=== PATIENT | female | born 1985 | race Caucasian/White ===

== ENCOUNTER 2016-11-02 11:11 | Emergency (ER) | payer MEDICAID ==
[~2016-11-02] VITALS: Ht 167.6 cm; Wt 81.6 kg
[2016-11-02] MEDS ORDERED: HYDROCODONE/APAP 5/325MG 1 EACH TABLET ONE (12:16)
[2016-11-02] MEDS ORDERED: HYDROCODONE/APAP 5/325MG 1 EACH TABLET PO ONE (12:30)
[2016-11-02 13:13] VITALS: BP 124/82
== END 2016-11-02 13:13 | disposition home or self-care (01) ==
LOC: ER 11:16
DX: T21.22XA Burn of second degree of abdominal wall, initial encounter (principal); X58.XXXA Exposure to other specified factors, initial encounter; Y93.89 Activity, other specified; Y92.89 Other specified places as the place of occurrence of the external cause; Y99.9 Unspecified external cause status
CPT/HCPCS: A4606; A6209; A6403; Z7610

== ENCOUNTER 2016-12-01 10:42 | Emergency (ER) | payer MEDICAID ==
[~2016-12-01] VITALS: Ht 167.6 cm; Wt 81.6 kg
[2016-12-01 10:47] VITALS: BP 129/70
== END 2016-12-01 11:15 | disposition home or self-care (01) ==
LOC: ER 10:46
DX: L25.9 Unspecified contact dermatitis, unspecified cause (principal)
CPT/HCPCS: A4606; A6402; A6407; Z7610

== ENCOUNTER 2016-12-03 12:23 | Emergency (ER) | payer MEDICAID ==
[~2016-12-03] VITALS: Ht 170.2 cm; Wt 83.9 kg
[2016-12-03 12:31] VITALS: BP 117/63
[2016-12-03] MEDS ORDERED: TDAP [DIPH/PERTUSSIS/TET] 0.5 ML VIAL IM ONE (12:52)
[2016-12-03] MEDS ORDERED: IBUPROFEN 600 MG TABLET PO ONE (12:52)
--- NOTE | 2016-12-03 13:00 | NUR ---
MOTRIN 600MG PO GIVEN ORDERED TTDA BOOSTER ([id number]; EXP 02/06/18) GIVEN in RUE G 23 IM ORDERED
[2016-12-03] MEDS: IBUPROFEN 600 MG TABLET PO ONE (13:02)
[2016-12-03] MEDS: TDAP [DIPH/PERTUSSIS/TET] 0.5 ML VIAL IM ONE (13:02)
== END 2016-12-03 13:38 | disposition home or self-care (01) ==
LOC: ER 12:30
DX: S61.012A Laceration without foreign body of left thumb without damage to nail, initial encounter (principal); W45.8XXA Other foreign body or object entering through skin, initial encounter; Y93.89 Activity, other specified; Y92.89 Other specified places as the place of occurrence of the external cause; Y99.8 Other external cause status
CPT/HCPCS: 12001; 90471; 90715; 99283; A4606; A6402; Z7610

== ENCOUNTER 2016-12-08 10:42 | Emergency (ER) | payer MEDICAID ==
[~2016-12-08] VITALS: Ht 167.6 cm; Wt 81.6 kg
[2016-12-08 10:56] VITALS: BP 119/69
== END 2016-12-08 11:26 | disposition home or self-care (01) ==
LOC: ER 10:44
DX: L08.89 Other specified local infections of the skin and subcutaneous tissue (principal); M79.641 Pain in right hand
CPT/HCPCS: A4606; Z7610

== ENCOUNTER 2017-02-06 00:34 | Emergency (ER) | payer MEDICAID ==
[~2017-02-06] VITALS: Ht 167.6 cm; Wt 90.7 kg
--- NOTE | 2017-02-06 00:50 | NUR ---
TO BED 7 A 31 YO FEMALE BIBSELF WITH C/O PELVIC PAIN "ICY-HOT" LIKE BURNING PAIN, ON AND OFF FOR A WEEK, PATIENT ALSO REPORTS FREQUENT URINATION/ BLOATING FEELING. PATIENT IS AAOX4, AMBULATORY WITH STEADY GAIT. AFEBRILE. VSS. INITIATED COMFORT MEASURES. GOWNED. AWAITING FOR ER MD LAGUNA.
--- NOTE | 2017-02-06 01:00 | NUR ---
STARTED A SALINE LOCK ON THE LEFT HAND G20, BLOOD DRAWN AND SENT TO LAB.
--- NOTE | 2017-02-06 01:05 | NUR ---
DR TORRES AT BEDSIDE FOR EVAL.
[2017-02-06] MEDS: KETOROLAC TROMETHAMINE INJ 30 MG/ML VIAL IV ONE ×2 (01:11→03:30)
[2017-02-06 01:21] LABS: APPEARANCE,URINE SL CLOUDY (CLEAR); BASOPHILS # (AUTO) 0.1 /CMM (0.0-0.2); BASOPHILS % (AUTO) 0.6 % (0.0-2.0); BILIRUBIN,URINE NEGATIVE (NEGATIVE); BLOOD, URINE NEGATIVE Ery/uL (NEGATIVE); COLOR,URINE YELLOW (YELLOW); EOSINOPHILS # (AUTO) 0.2 /CMM (0.0-0.7); EOSINOPHILS % (AUTO) 2.1 % (0.0-6.0); HEMATOCRIT 42 % (33-45); HEMOGLOBIN 14.3 g/dL (11.5-14.8); KETONES,URINE NEGATIVE (NEGATIVE); LEUKOCYTE ESTERASE ,URINE NEGATIVE (NEGATIVE); LYMPHOCYTES # (AUTO) 3.6 /CMM (0.8-4.8); LYMPHOCYTES % (AUTO) 33.6 % (20.0-44.0); MEAN CORPUSCULAR HEMOGLOBIN 29 PG (26.0-33.0); MEAN CORPUSCULAR HGB CONC 34 g/dl (31.0-36.0); MEAN CORPUSCULAR VOLUME 85 fL (82-100); MONOCYTES # (AUTO) 0.5 /CMM (0.1-1.30); NEUTROPHILS # (AUTO) 6.2 /CMM (1.8-8.9); NEUTROPHILS % (AUTO) 58.7 % (43.0-81.0); NITRITE, URINE NEGATIVE (NEGATIVE); PLATELET COUNT (AUTO) 295 /CMM (150-450); PROTEIN,URINE NEGATIVE (NEGATIVE); RDW COEFFICIENT OF VARIATION 13.2 (11.5-15.0); RED BLOOD CELL COUNT(AUTO) 4.96 MIL/uL (4.0-5.2); UGLUCOSE NEGATIVE (NEGATIVE); UROBILINOGEN,URINE 0.2 EU/dL (0.2); WHITE BLOOD COUNT (AUTO) 10.6 K/uL (4.3-11.0)
[2017-02-06 01:26] LABS: PREGNANCY TEST URINE QUAL NEGATIVE (NEGATIVE)
[2017-02-06 02:02] LABS: CALCIUM, SERUM 8.7 mg/dL (8.5-10.1); CREATININE 0.7 mg/dL (0.6-1.3); POTASSIUM 3.6 mmol/L (3.5-5.1)
[2017-02-06 02:08] LABS: ALBUMIN 3.7 g/dL (3.4-5.0); BILIRUBIN,DIRECT 0.1 mg/dL (0.0-0.2); BILIRUBIN,TOTAL 0.3 mg/dL (0.2-1.0); TOTAL PROTEIN, SERUM 7.3 g/dL (6.4-8.2)
--- NOTE | 2017-02-06 02:44 | NUR ---
pelvic/transvaginal ultrasound ongoing at bedside.
[2017-02-06] MEDS ORDERED: KETOROLAC TROMETHAMINE INJ 30 MG/ML VIAL ONE (03:24)
--- NOTE | 2017-02-06 03:30 | NUR ---
toradol 30mg ivp given per Dr Rincon's verbal order. test negative.
--- NOTE | 2017-02-06 03:37 | NUR ---
IV removed. Catheter intact and site benign. Pressure and 4x4 applied to site. No bleeding noted. Patient discharged to home in stable condition. Written and verbal after care instructions given. Patient verbalizes understanding of instruction. Patient is ambulatory with steady gait, accompanied by . No further complaints.
[2017-02-06 03:39] VITALS: BP 120/78
== END 2017-02-06 03:39 | disposition home or self-care (01) ==
LOC: ER 00:34
DX: N83.00 Follicular cyst of ovary, unspecified side (principal)
CPT/HCPCS: 36415; 76856; 80048; 80076; 81001; 84703 ×2; 85025; 96374; 99285; A4606; J1885; Z7610; 81000-TC

== ENCOUNTER 2017-07-25 09:08 | Emergency (ER) | payer SELFPAY ==
[~2017-07-25] VITALS: Ht 170.2 cm; Wt 86.2 kg
--- NOTE | 2017-07-25 09:15 | NUR ---
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 ALSO C/O DIARRHEA. A/OX 4. BREATHING EVEN AND UNLABORED. NO SOB. VITALS STABLE. SAFETY AND COMFORT MEASURES IN PLACE. AWAITING MD ORDERS.
--- NOTE | 2017-07-25 09:20 | NUR ---
URINE OBTAINED AND SENT TO LAB.
[2017-07-25] MEDS ORDERED: IBUPROFEN 600 MG TABLET PO ONE ×2 (09:26→09:30)
--- NOTE | 2017-07-25 09:28 | NUR ---
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 MD INFORMED AND STATED TO CANCEL ORDER FOR MOTRIN 600MG.
[2017-07-25 09:42] LABS: BASOPHILS % (AUTO) 0.4 % (0.0-2.0); EOSINOPHILS # (AUTO) 0.2 /CMM (0.0-0.7); EOSINOPHILS % (AUTO) 2.8 % (0.0-6.0); HEMATOCRIT 41 % (33-45); HEMOGLOBIN 13.8 g/dL (11.5-14.8); LYMPHOCYTES # (AUTO) 2.2 /CMM (0.8-4.8); MEAN CORPUSCULAR HEMOGLOBIN 30 PG (26.0-33.0); MEAN CORPUSCULAR HGB CONC 34 g/dl (31.0-36.0); MEAN CORPUSCULAR VOLUME 87 fL (82-100); MONOCYTES # (AUTO) 0.4 /CMM (0.1-1.30); MONOCYTES % (AUTO) 4.9 % (2.0-12.0); NEUTROPHILS % (AUTO) 63.9 % (43.0-81.0); PLATELET COUNT (AUTO) 314 /CMM (150-450); RDW COEFFICIENT OF VARIATION 12.8 (11.5-15.0); RED BLOOD CELL COUNT(AUTO) 4.67 MIL/uL (4.0-5.2); WHITE BLOOD COUNT (AUTO) 7.8 K/uL (4.3-11.0)
[2017-07-25 09:43] LABS: APPEARANCE,URINE CLEAR (CLEAR); BILIRUBIN,URINE NEGATIVE (NEGATIVE); BLOOD, URINE 1+ Ery/uL (NEGATIVE); COLOR,URINE YELLOW (YELLOW); KETONES,URINE NEGATIVE (NEGATIVE); LEUKOCYTE ESTERASE ,URINE 1+ (NEGATIVE); NITRITE, URINE NEGATIVE (NEGATIVE); PH,URINE 5.5 (5.0-8.0); PROTEIN,URINE NEGATIVE (NEGATIVE); UGLUCOSE NEGATIVE (NEGATIVE); UROBILINOGEN,URINE 0.2 EU/dL (0.2)
[2017-07-25 09:50] LABS: BACTERIA,URINE Few /HPF (None Seen); RBC,URINE 0-2 /HPF (0-2); SQUAMOUS EPITHELIAL CELL,UR Few /HPF (None Seen)
[2017-07-25 09:54] LABS: CALCIUM, SERUM 8.4 mg/dL (8.5-10.1); CREATININE 0.7 mg/dL (0.6-1.3); POTASSIUM 3.4 mmol/L (3.5-5.1)
[2017-07-25 11:01] VITALS: BP 128/72
--- NOTE | 2017-07-25 11:09 | NUR ---
Patient discharged to home in stable condition. Written and verbal after care instructions given. Patient verbalizes understanding of instruction.
== END 2017-07-25 11:08 | disposition home or self-care (01) ==
LOC: ER 09:11
DX: O23.40 Unspecified infection of urinary tract in pregnancy, unspecified trimester (principal); Z3A.00 Weeks of gestation of pregnancy not specified
CPT/HCPCS: 36415; 76856-TC; 80048-TC; 81000-TC; 84702-TC; 84703-TC; 85025-TC; 87086-TC; A4606; Z7610

== ENCOUNTER 2017-08-04 09:18 | Emergency (ER) | payer MEDICAID ==
[~2017-08-04] VITALS: Ht 157.5 cm; Wt 65.8 kg
--- NOTE | 2017-08-04 09:30 | NUR ---
PT CAME IN FOR R PELVIC PAIN, WATERY DISCHARGED PER PT REPORT, A0. SEEN BY MD FOR EVAL. VSS. SAFETY AND COMFORT MEASURES PROVIDED. WILL MONITOR.
--- NOTE | 2017-08-04 10:10 | NUR ---
NATHALY LUCIO AT BS.
[2017-08-04 10:15] LABS: BASOPHILS # (AUTO) 0.1 /CMM (0.0-0.2); BASOPHILS % (AUTO) 0.8 % (0.0-2.0); EOSINOPHILS # (AUTO) 0.1 /CMM (0.0-0.7); EOSINOPHILS % (AUTO) 1.5 % (0.0-6.0); HEMATOCRIT 40 % (33-45); HEMOGLOBIN 13.6 g/dL (11.5-14.8); LYMPHOCYTES # (AUTO) 2.2 /CMM (0.8-4.8); MEAN CORPUSCULAR HEMOGLOBIN 29 PG (26.0-33.0); MEAN CORPUSCULAR HGB CONC 34 g/dl (31.0-36.0); MEAN CORPUSCULAR VOLUME 86 fL (82-100); MONOCYTES # (AUTO) 0.5 /CMM (0.1-1.30); MONOCYTES % (AUTO) 5.8 % (2.0-12.0); NEUTROPHILS # (AUTO) 5.3 /CMM (1.8-8.9); NEUTROPHILS % (AUTO) 64.9 % (43.0-81.0); PLATELET COUNT (AUTO) 327 /CMM (150-450); RDW COEFFICIENT OF VARIATION 11.9 (11.5-15.0); RED BLOOD CELL COUNT(AUTO) 4.69 MIL/uL (4.0-5.2); WHITE BLOOD COUNT (AUTO) 8.2 K/uL (4.3-11.0)
[2017-08-04 11:52] LABS: APPEARANCE,URINE Clear (CLEAR); BILIRUBIN,URINE Negative (NEGATIVE); BLOOD, URINE Trace-intact Ery/uL (NEGATIVE); COLOR,URINE Yellow (YELLOW); KETONES,URINE Negative (NEGATIVE); LEUKOCYTE ESTERASE ,URINE Small (NEGATIVE); NITRITE, URINE Negative (NEGATIVE); PROTEIN,URINE Negative (NEGATIVE); UGLUCOSE Negative (NEGATIVE); UROBILINOGEN,URINE 0.2 EU/dL (0.2)
[2017-08-04 12:09] LABS: BACTERIA,URINE Few /HPF (None Seen); SQUAMOUS EPITHELIAL CELL,UR Few /HPF (None Seen)
--- NOTE | 2017-08-04 12:10 | NUR ---
PT CAME IN FOR R PELVIC PAIN, WATERY DISCHARGED PER PT REPORT, A0. SEEN BY MD FOR EVAL. VSS. SAFETY AND COMFORT MEASURES PROVIDED. WILL MONITOR.
--- NOTE | 2017-08-04 12:32 | NUR ---
Patient discharged to home in stable condition. Written and verbal after care instructions given. Patient verbalizes understanding of instruction.
[2017-08-04 12:34] VITALS: BP 110/78
== END 2017-08-04 12:34 | disposition home or self-care (01) ==
LOC: ER 09:25
DX: O23.41 Unspecified infection of urinary tract in pregnancy, first trimester (principal); Z3A.01 Less than 8 weeks gestation of pregnancy
CPT/HCPCS: 36415; 76805; 81001; 84702; 85025; 86850; 87086; 99285; A4606; Z7610; 81000-TC

== ENCOUNTER 2017-09-20 07:41 | Emergency (ER) | payer MEDICAID ==
[~2017-09-20] VITALS: Ht 167.6 cm; Wt 87.1 kg
--- NOTE | 2017-09-20 07:50 | NUR ---
AAOX3, C/O ON/OFF ABD CRAMPING X 2 DAYS, WORSE TODAY, BACK PAIN. NAUSEA 3 MONTHS , A0. RR IS EVEN AND UNLABORED WITH NAD NOTED. SKIN IS WARM AND DRY. DR NAM AT BS FOR EVAL.
[2017-09-20 09:06] LABS: BASOPHILS % (AUTO) 0.3 % (0.0-2.0); EOSINOPHILS # (AUTO) 0.1 /CMM (0.0-0.7); EOSINOPHILS % (AUTO) 1.3 % (0.0-6.0); HEMATOCRIT 36 % (33-45); HEMOGLOBIN 12.8 g/dL (11.5-14.8); LYMPHOCYTES # (AUTO) 2.4 /CMM (0.8-4.8); MEAN CORPUSCULAR HEMOGLOBIN 30 PG (26.0-33.0); MEAN CORPUSCULAR HGB CONC 35 g/dl (31.0-36.0); MEAN CORPUSCULAR VOLUME 86 fL (82-100); MONOCYTES # (AUTO) 0.6 /CMM (0.1-1.30); MONOCYTES % (AUTO) 5.2 % (2.0-12.0); NEUTROPHILS # (AUTO) 7.7 /CMM (1.8-8.9); NEUTROPHILS % (AUTO) 71.2 % (43.0-81.0); PLATELET COUNT (AUTO) 313 /CMM (150-450); RDW COEFFICIENT OF VARIATION 12.9 (11.5-15.0); RED BLOOD CELL COUNT(AUTO) 4.21 MIL/uL (4.0-5.2); WHITE BLOOD COUNT (AUTO) 10.9 K/uL (4.3-11.0)
[2017-09-20 09:13] LABS: BILIRUBIN,URINE NEGATIVE (NEGATIVE); BLOOD, URINE NEGATIVE Ery/uL (NEGATIVE); COLOR,URINE YELLOW (YELLOW); KETONES,URINE NEGATIVE (NEGATIVE); LEUKOCYTE ESTERASE ,URINE 2+ (NEGATIVE); NITRITE, URINE NEGATIVE (NEGATIVE); PROTEIN,URINE NEGATIVE (NEGATIVE); UGLUCOSE NEGATIVE (NEGATIVE); UROBILINOGEN,URINE 0.2 EU/dL (0.2)
[2017-09-20 09:15] LABS: APPEARANCE,URINE SLIGHTLY CLOUDY (CLEAR)
[2017-09-20 09:22] LABS: ALBUMIN 3.2 g/dL (3.4-5.0); BILIRUBIN,DIRECT 0.1 mg/dL (0.0-0.2); BILIRUBIN,TOTAL 0.5 mg/dL (0.2-1.0); CALCIUM, SERUM 9.2 mg/dL (8.5-10.1); CREATININE 0.5 mg/dL (0.6-1.3); POTASSIUM 3.4 mmol/L (3.5-5.1); TOTAL PROTEIN, SERUM 7.2 g/dL (6.4-8.2)
[2017-09-20 09:36] LABS: BACTERIA,URINE 1+ /HPF (None Seen); MUCUS,URINE Few /LPF (None Seen); RBC,URINE 0-2 /HPF (0-2); URINE AMORPHOUS URATE Few /HPF (None Seen)
[2017-09-20] MEDS ORDERED: ONDANSETRON 4 MG TAB.RAPDIS ONE (09:39)
[2017-09-20] MEDS: ONDANSETRON 4 MG TAB.RAPDIS SL ONE (09:42)
--- NOTE | 2017-09-20 09:44 | NUR ---
DR NAM AT FOR AN UPDATE AND RE-EVAL.
--- NOTE | 2017-09-20 10:22 | NUR ---
Patient discharged to home in stable condition. Written and verbal after care instructions given. Patient verbalizes understanding of instruction.
[2017-09-20 10:23] VITALS: BP 120/75
== END 2017-09-20 10:28 | disposition home or self-care (01) ==
LOC: ER 07:43
DX: O26.891 Other specified pregnancy related conditions, first trimester (principal); R82.71 Bacteriuria; K59.00 Constipation, unspecified; Z3A.12 12 weeks gestation of pregnancy
CPT/HCPCS: 36415; 76856; 80048; 80076; 81001; 84702; 85025; 87086; 99285; A4606; Q0162; Z7610; 81000-TC

== ENCOUNTER 2017-09-26 20:05 | Emergency (ER) | payer MEDICAID ==
[~2017-09-26] VITALS: Ht 170.2 cm; Wt 87.1 kg
--- NOTE | 2017-09-26 21:34 | NUR ---
MIKE TANNER AT BEDSIDE FOR EVAL.
[2017-09-26 21:42] LABS: APPEARANCE,URINE Clear (CLEAR); BILIRUBIN,URINE Negative (NEGATIVE); BLOOD, URINE Trace-intact Ery/uL (NEGATIVE); COLOR,URINE Yellow (YELLOW); KETONES,URINE Negative (NEGATIVE); LEUKOCYTE ESTERASE ,URINE Small (NEGATIVE); NITRITE, URINE Negative (NEGATIVE); PROTEIN,URINE Negative (NEGATIVE); UGLUCOSE Negative (NEGATIVE); UROBILINOGEN,URINE 0.2 EU/dL (0.2)
--- NOTE | 2017-09-26 21:44 | NUR ---
IV LINE STARTED BLOOD DRAWN AND SENT TO LAB.
[2017-09-26] MEDS ORDERED: ONDANSETRON HCL/PF 4 MG/2 ML VIAL ONE (21:47)
[2017-09-26 21:49] LABS: BASOPHILS # (AUTO) 0.1 /CMM (0.0-0.2); BASOPHILS % (AUTO) 1.3 % (0.0-2.0); EOSINOPHILS # (AUTO) 0.1 /CMM (0.0-0.7); EOSINOPHILS % (AUTO) 1.3 % (0.0-6.0); HEMATOCRIT 34 % (33-45); HEMOGLOBIN 12.1 g/dL (11.5-14.8); LYMPHOCYTES # (AUTO) 1.9 /CMM (0.8-4.8); LYMPHOCYTES % (AUTO) 17.4 % (20.0-44.0); MEAN CORPUSCULAR HEMOGLOBIN 30 PG (26.0-33.0); MEAN CORPUSCULAR HGB CONC 35 g/dl (31.0-36.0); MEAN CORPUSCULAR VOLUME 85 fL (82-100); MONOCYTES # (AUTO) 0.6 /CMM (0.1-1.30); MONOCYTES % (AUTO) 5.9 % (2.0-12.0); NEUTROPHILS # (AUTO) 8.2 /CMM (1.8-8.9); NEUTROPHILS % (AUTO) 74.1 % (43.0-81.0); PLATELET COUNT (AUTO) 298 /CMM (150-450); RDW COEFFICIENT OF VARIATION 12.1 (11.5-15.0); RED BLOOD CELL COUNT(AUTO) 4.03 MIL/uL (4.0-5.2); WHITE BLOOD COUNT (AUTO) 10.9 K/uL (4.3-11.0)
[2017-09-26 21:53] LABS: BACTERIA,URINE Few /HPF (None Seen); RBC,URINE 2-3/HPF /HPF (0-2); SQUAMOUS EPITHELIAL CELL,UR Few /HPF (None Seen); URINE AMORPHOUS URATE Few /HPF (None Seen)
--- NOTE | 2017-09-26 21:54 | NUR ---
U/S TECH AT BEDSIDE FOR PELVIC ULTRASOUND.
[2017-09-26] MEDS ORDERED: ONDANSETRON HCL/PF 4 MG/2 ML VIAL IVP ONE (22:00)
[2017-09-26] MEDS ORDERED: IV NS 0.9% 1,000 ML BAG IV ONE (22:00)
[2017-09-26 22:06] LABS: CALCIUM, SERUM 8.9 mg/dL (8.5-10.1); CREATININE 0.6 mg/dL (0.6-1.3); POTASSIUM 3.4 mmol/L (3.5-5.1)
[2017-09-26 22:33] LABS: ALBUMIN 3.1 g/dL (3.4-5.0); BILIRUBIN,TOTAL 0.2 mg/dL (0.2-1.0); TOTAL PROTEIN, SERUM 6.8 g/dL (6.4-8.2)
--- NOTE | 2017-09-27 01:22 | NUR ---
IV removed. Catheter intact and site benign. Pressure and 4x4 applied to site. No bleeding noted. Patient discharged to home in stable condition. Written and verbal after care instructions given. Patient verbalizes understanding of instruction. Patient is ambulatory with steady gait, no further complaints. vss.
[2017-09-27 01:25] VITALS: BP 120/60
== END 2017-09-27 01:25 | disposition home or self-care (01) ==
LOC: ER 20:11
DX: O26.891 Other specified pregnancy related conditions, first trimester (principal); R10.30 Lower abdominal pain, unspecified; Z3A.13 13 weeks gestation of pregnancy
CPT/HCPCS: 36415; 76856; 80048; 80076; 81001; 84702; 85025; 87210; 87880; 96374; 99285; A4606; J2405; Z7610; 81000-TC; 86403-TC

== ENCOUNTER 2017-09-28 08:21 | Emergency (ER) | payer MEDICAID ==
[~2017-09-28] VITALS: Ht 170.2 cm; Wt 85.7 kg
[2017-09-28 08:28] VITALS: BP 105/68
--- NOTE | 2017-09-28 08:30 | NUR ---
AAOX3, C/O FLU LIKE SYMPTOMS: COUGH AND FEVER X YESTERDAY. SKIN IS WARM AND DRY. RESP IS EVEN AND UNLABORED WITH NAD NOTED. AWAITING MD FOR EVAL.
[2017-09-28] MEDS ORDERED: ACETAMINOPHEN ES 500 MG TABLET PO ONE (09:00)
[2017-09-28] MEDS ORDERED: ACETAMINOPHEN ES 500 MG TABLET ONE (09:06)
== END 2017-09-28 10:17 | disposition home or self-care (01) ==
LOC: ER 08:24
DX: O99.512 Diseases of the respiratory system complicating pregnancy, second trimester (principal); J11.1 Influenza due to unidentified influenza virus with other respiratory manifestations; Z3A.14 14 weeks gestation of pregnancy
CPT/HCPCS: 87804; 99284; A4606; Z7610; 87400

== ENCOUNTER 2017-10-21 22:02 | Emergency (ER) | payer MEDICAID ==
[~2017-10-21] VITALS: Ht 167.6 cm; Wt 72.6 kg
--- NOTE | 2017-10-21 22:25 | NUR ---
PT AMBULATORY TO ER BED 16. PT BIB FAMILY, PT C/O LEFT OVARY PAIN X 1 DAY, PT STATES SHE IS 17 WEEKS . 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 VSS/RESP EVEN UNLABORED/NAD NOTED/SKIN WARM AND DRY/DENIES N-V-D/AFEBRILE/AOX4. AWAITING MD LAGUNA.
--- NOTE | 2017-10-21 23:00 | NUR ---
LAB AT BEDSIDE TO DRAW.
[2017-10-21 23:23] LABS: BASOPHILS % (AUTO) 0.4 % (0.0-2.0); EOSINOPHILS # (AUTO) 0.1 /CMM (0.0-0.7); EOSINOPHILS % (AUTO) 0.9 % (0.0-6.0); HEMATOCRIT 32 % (33-45); HEMOGLOBIN 11.1 g/dL (11.5-14.8); LYMPHOCYTES # (AUTO) 2.4 /CMM (0.8-4.8); LYMPHOCYTES % (AUTO) 22.9 % (20.0-44.0); MEAN CORPUSCULAR HEMOGLOBIN 30 PG (26.0-33.0); MEAN CORPUSCULAR HGB CONC 35 g/dl (31.0-36.0); MEAN CORPUSCULAR VOLUME 87 fL (82-100); MONOCYTES # (AUTO) 0.6 /CMM (0.1-1.30); MONOCYTES % (AUTO) 6.1 % (2.0-12.0); NEUTROPHILS # (AUTO) 7.4 /CMM (1.8-8.9); NEUTROPHILS % (AUTO) 69.7 % (43.0-81.0); PLATELET COUNT (AUTO) 272 /CMM (150-450); RDW COEFFICIENT OF VARIATION 13.6 (11.5-15.0); RED BLOOD CELL COUNT(AUTO) 3.67 MIL/uL (4.0-5.2); WHITE BLOOD COUNT (AUTO) 10.6 K/uL (4.3-11.0)
--- NOTE | 2017-10-21 23:31 | NUR ---
URINE SPECIMEN OBTAINED AND SENT TO THE LAB.
[2017-10-21 23:39] LABS: CALCIUM, SERUM 8.2 mg/dL (8.5-10.1); CREATININE 0.5 mg/dL (0.6-1.3); POTASSIUM 3.1 mmol/L (3.5-5.1)
[2017-10-21 23:40] LABS: APPEARANCE,URINE SL CLOUDY (CLEAR); BILIRUBIN,URINE NEGATIVE (NEGATIVE); BLOOD, URINE NEGATIVE Ery/uL (NEGATIVE); KETONES,URINE NEGATIVE (NEGATIVE); LEUKOCYTE ESTERASE ,URINE 3+ (NEGATIVE); NITRITE, URINE NEGATIVE (NEGATIVE); PH,URINE 7.5 (5.0-8.0); PROTEIN,URINE NEGATIVE (NEGATIVE); UGLUCOSE NEGATIVE (NEGATIVE); UROBILINOGEN,URINE 0.2 EU/dL (0.2)
[2017-10-21 23:48] LABS: COLOR,URINE STRAW (YELLOW)
[2017-10-21 23:53] LABS: BACTERIA,URINE 2+ /HPF (None Seen); MUCUS,URINE Few /LPF (None Seen); RBC,URINE 0-2 /HPF (0-2); SQUAMOUS EPITHELIAL CELL,UR Moderate /HPF (None Seen)
--- NOTE | 2017-10-22 00:22 | NUR ---
ULTRASOUND AT BEDSIDE.
--- NOTE | 2017-10-22 01:50 | NUR ---
Patient discharged to home in stable condition. Written and verbal after care instructions given. Patient verbalizes understanding of instruction. Patient ambulatory with a steady gait.
[2017-10-22 01:51] VITALS: BP 108/61
== END 2017-10-22 01:52 | disposition home or self-care (01) ==
LOC: ER 22:04
DX: O26.892 Other specified pregnancy related conditions, second trimester (principal); O23.42 Unspecified infection of urinary tract in pregnancy, second trimester; O99.412 Diseases of the circulatory system complicating pregnancy, second trimester; O20.8 Other hemorrhage in early pregnancy; Z3A.17 17 weeks gestation of pregnancy
CPT/HCPCS: 36415; 76856; 80048; 81001; 84702; 85025; 87086; 99285; A4606; Z7610; 81000-TC

== ENCOUNTER 2022-09-27 00:54 | Emergency (ER) | payer MEDICAID, OTHER ==
[~2022-09-27] VITALS: Ht 167.6 cm; Wt 89.8 kg
--- NOTE | 2022-09-27 01:15 | NUR ---
BIBS. BACK AND HEAD PAIN S/P SLIP AND FALL. DENIES KO. PATIENT IS AAOX4. ABLE TO MAKE NEEDS KNOWN. PLACED COMFORTABLY IN BED.
--- NOTE | 2022-09-27 01:28 | NUR ---
SEEN BY DR GOMEZ AT BEDSIDE.
--- NOTE | 2022-09-27 01:30 | NUR ---
PER DR GOMEZ PT IS TO BE OBSERVE FOR 30 MINS SINCE SHE REFUSED PAIN MEDICATION, XRAYS AND CT SCAN.
[2022-09-27] MEDS ORDERED: IBUP-1957 PO (02:36)
[2022-09-27] MEDS ORDERED: CYCL5TAB PO (02:36)
[2022-09-27 02:47] VITALS: BP 129/76
--- NOTE | 2022-09-27 02:47 | NUR ---
Patient discharged to home in stable condition. Written and verbal after care instructions given. Patient verbalizes understanding of instruction.
== END 2022-09-27 02:47 | disposition home or self-care (01) ==
LOC: ER 01:00
DX: S09.8XXA Other specified injuries of head, initial encounter (principal); M25.521 Pain in right elbow; Z79.899 Other long term (current) drug therapy; W01.0XXA Fall on same level from slipping, tripping and stumbling without subsequent striking against object, initial encounter; Y93.E5 Activity, floor mopping and cleaning; Y92.89 Other specified places as the place of occurrence of the external cause; Y99.8 Other external cause status